=== PATIENT | female | born 1945 | race Caucasian/White ===

== ENCOUNTER → 2020-06-15 15:31 | Outpatient (CLI) | payer MEDICARE, OTHER, SELFPAY ==
--- NOTE | 2020-06-15 15:41 | DI.RAD.S_ITS ---
PROCEDURE: XR SHOULDER RT MIN 2V INDICATIONS: RT SHOULDER PAIN POST FALL TECHNIQUE: 3 views of the shoulder were acquired. COMPARISON: None. FINDINGS: Bones: Lucency in the distal clavicle concerning for nondisplaced fracture. No suspicious bony lesions. Visualized ribs appear intact. Moderate acromioclavicular joint osteoarthritis. Soft tissues: No suspicious soft tissue calcifications. Right axillary surgical clips. IMPRESSION: Possible nondisplaced distal right clavicle fracture Dictated by: Nicci Chan MD, PhD on 06/15/2020 at 16:48 Approved by: Nicci Chan MD, PhD on 06/15/2020 at 16:49
== END ==
PROVIDERS: PCP Family Medicine; Referring Provider Family Medicine; Visit Provider Family Medicine
DX: S49.91XA Unspecified injury of right shoulder and upper arm, initial encounter (principal); W19.XXXA Unspecified fall, initial encounter
CPT/HCPCS: 73030

== ENCOUNTER → 2020-10-10 12:07 | Outpatient (CLI) | payer MEDICARE, OTHER, SELFPAY ==
[2020-10-10 20:10] LABS: COVID19 - ORCAS (NP or Nasal) Negative (Negative)
== END ==
PROVIDERS: PCP Family Medicine; Visit Provider Family Medicine
DX: Z20.822 Contact with and (suspected) exposure to COVID-19 (principal)
CPT/HCPCS: U0003

== ENCOUNTER → 2021-02-23 10:15 | Outpatient (CLI) | payer MEDICARE, OTHER, SELFPAY ==
[2021-02-23 20:51] LABS: COVID19 - ORCAS (NP or Nasal) Negative (Negative)
== END ==
PROVIDERS: PCP Family Medicine; Visit Provider Family Medicine
DX: Z20.822 Contact with and (suspected) exposure to COVID-19 (principal)
CPT/HCPCS: C9803; U0003

== ENCOUNTER → 2021-09-05 13:14 | Outpatient (CLI) | payer MEDICARE, OTHER, SELFPAY ==
[2021-09-05 18:34] LABS: Add Manual Diff / Slide Review NO; Basophils Absolute Auto 0 /uL (0-100); Basophils Percent Auto 0.7 % (0-2); Eosinophils Absolute Auto 200 /uL (0-450); Eosinophils Percent Auto 3.7 % (2-4); Hematocrit 38.9 % (36-46); Lymphocytes Absolute Auto 1600 /uL (1100-4500); Lymphocytes Percent Auto 26.4 % (25-40); Mean Corpuscular HGB Conc 33.3 % (30-36); Mean Corpuscular Hemoglobin 33.1 PG (26-34); Mean Corpuscular Volume 99.4 fL (80-100); Monocytes Absolute Auto 500 /uL (0-900); Monocytes Percent Auto 8.5 % (3-14); Neutrophils Absolute Auto 3600 /uL (1500-7000); Neutrophils Percent Auto 60.7 % (50-75); Platelet Count 230 X10^3/uL (150-400); Red Blood Cell Count 3.91 X10^6/uL (4.0-5.2); Red Cell Distribution Width 13.4 % (11.6-14.8); White Blood Cell Count 5.9 X10^3/uL (4.5-11.0)
[2021-09-05 18:44] LABS: Alanine Aminotransferase 115 IU/L (<35); Albumin 4.2 g/dL (3.5-5.0); Albumin Globulin Ratio 1.8 (1.0-2.8); Alkaline Phosphatase 70 U/L (38-126); Aspartate Aminotransferase 91 IU/L (14-36); BUN Creatinine Ratio 24.7 (6-22); Bilirubin Total 0.5 mg/dL (0.2-1.3); Blood Urea Nitrogen 18 mg/dL (7-17); Calcium 8.6 mg/dL (8.4-10.2); Carbon Dioxide 28 mmol/L (22-32); Chloride 102 mmol/L (98-107); Cholesterol 208 mg/dL (140-199); Estimated Glomerular Filt Rate > 60.0 mL/min (>60); Globulin 2.4 g/dL (1.7-4.1); Glucose 104 mg/dL (80-110); HDL Cholesterol 87 mg/dL (40-60); HEMOLYSIS 17 (0-50); LDL Cholesterol Calculated 105 mg/dL (<100); Potassium 4.3 mmol/L (3.4-5.1); Sodium 138 mmol/L (137-145); Total Protein 6.6 g/dL (6.3-8.2); Triglycerides 81 mg/dL (35-150)
[2021-09-05 19:08] LABS: TSH w/ Reflex to FT4 0.85 uIU/mL (0.47-4.68)
== END ==
PROVIDERS: PCP Family Medicine; Referring Provider Family Medicine; Visit Provider Family Medicine
DX: G31.84 Mild cognitive impairment of uncertain or unknown etiology (principal); I48.91 Unspecified atrial fibrillation; J45.909 Unspecified asthma, uncomplicated; M20.41 Other hammer toe(s) (acquired), right foot; M20.42 Other hammer toe(s) (acquired), left foot; C50.919 Malignant neoplasm of unspecified site of unspecified female breast
CPT/HCPCS: 80053; 80061; 84443; 85025

== ENCOUNTER → 2021-09-13 08:16 | Outpatient (CLI) | payer MEDICARE, OTHER, SELFPAY ==
[2021-09-13 19:42] LABS: Alanine Aminotransferase 111 IU/L (<35); Albumin 4.2 g/dL (3.5-5.0); Albumin Globulin Ratio 1.7 (1.0-2.8); Alkaline Phosphatase 71 U/L (38-126); Aspartate Aminotransferase 61 IU/L (14-36); BUN Creatinine Ratio 22.8 (6-22); Bilirubin Total 0.4 mg/dL (0.2-1.3); Blood Urea Nitrogen 18 mg/dL (7-17); Calcium 8.8 mg/dL (8.4-10.2); Carbon Dioxide 29 mmol/L (22-32); Chloride 106 mmol/L (98-107); Estimated Glomerular Filt Rate > 60 mL/min (>60); Globulin 2.5 g/dL (1.7-4.1); Glucose 106 mg/dL (80-110); HEMOLYSIS 37 (0-50); Potassium 4.8 mmol/L (3.4-5.1); Sodium 142 mmol/L (137-145); Total Protein 6.7 g/dL (6.3-8.2)
== END ==
PROVIDERS: PCP Family Medicine; Visit Provider Family Medicine
DX: R89.9 Unspecified abnormal finding in specimens from other organs, systems and tissues (principal)
CPT/HCPCS: 80053

== ENCOUNTER → 2021-12-04 15:28 | Outpatient (CLI) | payer MEDICARE, OTHER, SELFPAY ==
--- NOTE | 2021-12-04 | DI.ECHO.S_ITS ---
[facility]---------+ [facility] +---------+ : : [address] : : : : [id number] : : : : Phone: [phone] Echocardiogram Report + + :Name: TONG MCCONNELL Study Date: 12/04/2021 Height: 64 in : :[facility] ReadingLocation: Weight: 140 lb : : Gender: Female BSA: 1.7 m2 : :: 1945 Age: 76 yrs BP: 120/58 mmHg: :Reason For Study: DYSPNEA : :Ordering Physician: MICHELLE, : :OLEGARIO Performed By: Marisa Coffman : :Referring: OLEGARIO JO : + + Interpretation Summary 1) Normal left ventricular thickness and size with low normal systolic function (EF 50-55%). 2) Normal right ventricular size and function. 3) Moderately enlarged left atrium. 4) There is moderate tricuspid regurgitation. 5) There is mild aortic regurgitation. 6) The right ventricular systolic pressure is estimated to be at least 39 mmHg based on an estimated right atrial pressure of 8 mm Hg. 7) No prior Echo available for comparison. Procedure: A two-dimensional transthoracic echocardiogram with color flow and Doppler was performed. The study quality was technically adequate. There is no prior echocardiogram noted for this patient. The heart rate ranged between 75-100 bpm during the study. Left Ventricle: The left ventricle is normal in size and wall thickness. The ejection fraction is estimated to be 50-55%. Left ventricular systolic function is low normal. There are no focal wall motion abnormalities. Right Ventricle: The right ventricle is normal in size and function. Atria: The left atrium is moderately dilated. The right atrium is borderline dilated. There is no Doppler evidence for an interatrial shunt. Mitral Valve: The mitral valve leaflets appear mildly thickened, but open well. There is mild to moderate mitral regurgitation. Aortic Valve: The aortic valve is trileaflet. The aortic valve opens well. The aortic valve is slightly calcified. There is no aortic valve stenosis. There is mild aortic regurgitation. Tricuspid Valve: The tricuspid valve leaflets are thin and pliable. There is moderate tricuspid regurgitation. The right ventricular systolic pressure is estimated to be at least 39 mmHg based on an estimated right atrial pressure of 8 mm Hg. Pulmonic Valve: The pulmonic valve is not well seen, but is grossly normal. There is trace pulmonic regurgitation. Great Vessels: The aortic root is normal size. The dimensions of the ascending aorta are normal. The IVC is dilated (diameter is greater than 2.1 cm) yet it collapses greater than 50% with a sniff. This suggests a right atrial pressure of 8 mm Hg. Pericardium/ Pleura There is no pericardial effusion. There is no pleural effusion. MMode/2D Measurements & Calculations LVIDd: 4.1 cm LVOT diam: 2.0 cm LVIDs: 2.8 cm Ao root diam: 3.3 cm FS: 33.1 % asc Aorta Diam: 3.5 cm EPSS: 0.62 cm Ao Arch Diam (Prox Trans): 2.8 cm IVSd: 0.97 cm LVPWd: 0.84 cm LV atkinson. diameter/BSA (cm/m^2): 2.5 LV sys. diameter/BSA (cm/m^2): 1.6 LA A2 area: 21.7 cm2 RA long axis: 5.4 cm LA A4 area: 23.0 cm2 RA area: 18.9 cm2 LA length (vol): 5.6 cm RA vol: 55.8 ml LA vol: 76.4 ml RA : 33.2 ml/m2 LA vol index: 45.5 ml/m2 IVC diam: 2.1 cm RVD1 (basal): 3.1 cm RVD2 (mid): 2.3 cm TAPSE: 1.8 cm Doppler Measurements & Calculations Ao V2 max: 137.8 cm/sec LVOT Max Ricardo: 80.3 cm/sec Ao V2 mean: 96.0 cm/sec LV V1 max P.6 mmHg Ao max P.6 mmHg LV V1 VTI: 14.5 cm Ao mean P.1 mmHg SHERRY(I,D): 1.9 cm2 Ao V2 VTI: 24.6 cm SHERRY(V,D): 1.8 cm2 sev ratio: 0.59 SHERRY indexed to BSA (cm^2/m^2): 1.1 AI P1/2t: 568.1 msec AI dec slope: 191.4 cm/sec2 MV E max ricardo: 61.4 cm/sec TR max ricardo: 279.3 cm/sec MV A max ricardo: 1.6 cm/sec TR max P.2 mmHg MV E/A: 39.3 PA V2 max: 82.8 cm/sec Med Peak E' Ricardo: 13.1 cm/sec PA V2 mean: 59.2 cm/sec E/E' med: 4.7 PA mean P.5 mmHg Lat Peak E' Ricardo: 15.0 cm/sec PA pr(Accel): 43.0 mmHg E/E' lat: 4.1 E/e' average: 4.4 MV dec time: 0.23 sec MR ERO: 0.08 cm2 MR PISA: 0.87 cm2 SV(LVOT): 45.5 ml MR flow rate: 37.4 cm3/sec MR PISA radius: 0.37 cm Reading Physician:11:07 AM
== END ==
PROVIDERS: PCP Family Medicine; Referring Provider Internal Medicine Cardiovascular Disease; Visit Provider Internal Medicine Cardiovascular Disease
DX: R06.00 Dyspnea, unspecified (principal); I51.7 Cardiomegaly; I07.1 Rheumatic tricuspid insufficiency; I35.1 Nonrheumatic aortic (valve) insufficiency
CPT/HCPCS: 93306

== ENCOUNTER → 2022-02-05 09:36 | Outpatient (CLI) | payer MEDICARE, OTHER, SELFPAY ==
[2022-02-05 20:06] LABS: Alanine Aminotransferase 36 IU/L (<35); Albumin 4.2 g/dL (3.5-5.0); Albumin Globulin Ratio 1.8 (1.0-2.8); Alkaline Phosphatase 61 U/L (38-126); Aspartate Aminotransferase 33 IU/L (14-36); Bilirubin Total 0.7 mg/dL (0.2-1.3); Blood Urea Nitrogen 19 mg/dL (7-17); Calcium 9.2 mg/dL (8.4-10.2); Carbon Dioxide 28 mmol/L (22-32); Chloride 103 mmol/L (98-107); Estimated Glomerular Filt Rate > 60 mL/min (>60); Globulin 2.4 g/dL (1.7-4.1); Glucose 108 mg/dL (80-110); HEMOLYSIS < 15 (0-50); Potassium 4.3 mmol/L (3.4-5.1); Sodium 138 mmol/L (137-145); Total Protein 6.6 g/dL (6.3-8.2)
[2022-02-05 21:12] LABS: TSH w/ Reflex to FT4 1.19 uIU/mL (0.47-4.68)
== END ==
PROVIDERS: PCP Family Medicine; Visit Provider Family Medicine
DX: G31.84 Mild cognitive impairment of uncertain or unknown etiology (principal); F32.0 Major depressive disorder, single episode, mild; I48.91 Unspecified atrial fibrillation
CPT/HCPCS: 80053; 84443

== ENCOUNTER 2023-02-05 09:20 | Emergency (ER) | payer MEDICARE, OTHER, SELFPAY ==
[2023-02-05 09:26] VITALS: BP 122/75; PULSE 78; RESP 18; TEMP 36.6; O2SAT 96; BMI 24.0
--- NOTE | 2023-02-05 09:38 | ED.EYEPROB ---
HPI - Eye Problem General Chief complaint: Eye Problems Stated complaint: Left eye infection Time Seen by Provider: 02/05/23 09:38 Source: patient Mode of arrival: Ambulatory Limitations: no limitations History of Present Illness HPI Narrative: Patient has a small area of erythema on the left upper lid for about 3 days. There is a small amount of purulent drainage from the site. There is no increased erythema. Occasionally she feels like there is a film over the left eye. She is no persistent discharge. She is no sinus congestion, rhinorrhea, chronic sinus problems. She has no sore throat. She denies fever chills. There is no change in her vision. She is had no eye trauma. Related Data Home Medications Medication Instructions Recorded Confirmed apixaban 5 mg tablet (Eliquis) 5 mg PO BID 12/06/22 01/07/23 memantine 5 mg tablet 5 mg PO BID 12/06/22 01/07/23 Previous Rx's Medication Instructions Recorded loratadine 10 mg tablet 10 mg PO DAILY #90 tabs 08/28/21 albuterol sulfate 90 mcg/actuation See Rx Instructions .Route 07/03/22 aerosol inhaler .COMPLEX #8.5 grams metoprolol succinate 25 mg See Rx Instructions .Route 01/07/23 tablet,extended release 24 hr .COMPLEX #90 tabs sertraline 50 mg tablet 50 mg PO DAILY #90 tabs 01/09/23 gentamicin 0.3 % eye drops 1 drp EYE-LEFT .q4h while awake #5 02/05/23 mL Allergies Allergy/AdvReac Type Severity Reaction Status Date / Time No Known Drug Allergies Allergy Verified 12/05/22 11:04 Review of Systems Review of Systems ROS Unobtainable: All systems reviewed & are unremarkable except as noted in HPI and below Patient History Medical History Atrial fibrillation with rapid ventricular response Breast cancer (~2015) Chicken pox (~1950) Encounter to establish care Headache Hearing loss Heavy menstrual period Hypertension Medicare annual wellness visit, subsequent Migraines Mild cognitive impairment with memory loss Seasonal allergic reaction Thyroid nodule (~1964) Surgical History Anesthesia H/O lumpectomy (~2015) H/O thyroidectomy Status post breast lumpectomy (~1989) Status post breast lumpectomy (~1999) Status post breast lumpectomy (~2014) Status post hysterectomy Family History Father Heart disease Grandfather Appendicitis Grandfather Heart disease Sister Age: 67 Breast cancer Mother Suicide Brother Cancer Social History Smoking Status: Former smoker additional social history: traveling to [place] with daughter for 2-3 weeks Daughter is a [place] Senator [facility] 12/2022 Smoking Status: Former smoker alcohol intake frequency: 0-2 drinks per day Substance Use Type: does not use Exam Initial Vital Signs Initial Vital Signs: Vital Signs Temperature 97.9 F 02/05/23 09:26 Pulse Rate 78 02/05/23 09:26 Respiratory Rate 18 02/05/23 09:26 Blood Pressure 122/75 02/05/23 09:26 Pulse Oximetry 96 02/05/23 09:26 Oxygen Delivery Method Room Air 02/05/23 09:26 Const General: cooperative, healthy appearing, comfortable, well developed and well groomed [facility] Head: normal to inspection, normocephalic and atraumatic Eyes Visual Madrigal: normal visual madrigal by confrontation Periorbital: periorbital findings normal Eyelids: eyelid abnormality left upper eyelid erythema (Small stye to the lateral aspect of the lid.) Conjunctivae: conjunctivae normal Sclera: sclerae normal Pupils: PERRL and pupil size EOM: EOM intact bilaterally Neck Neck: normal visual inspection, full ROM and No lymphadenopathy Course Vital Signs Vital signs: Vital Signs - 8 hr 02/05/23 09:26 Temperature 97.9 F Pulse Rate 78 Respiratory Rate 18 Blood Pressure 122/75 Pulse Oximetry 96 Oxygen Delivery Method Room Air Discharge Plan Departure Patient Disposition: Home Clinical Impression: Hordeolum externum (stye) Qualifiers: Laterality: left Eyelid: upper Qualified Code(s): H00.014 - Hordeolum externum left upper eyelid Instructions: Hordeolum Activity Restrictions/Additional Instructions: Gentamicin 1 drop into the left eye every 4 hours while awake for 1 week. Apply warm compresses to the left eye frequently for the next several days. You may need 2-3 weeks for the stye to dry up. At this time persist, see an forestry extension specialist. Return here as needed. Prescriptions: New gentamicin 0.3 % drops 1 drp EYE-LEFT .q4h while awake Qty: 5 0RF Rx Instructions: for 7 days No Action albuterol sulfate 90 mcg/actuation HFA aerosol inhaler See Rx Instructions .ROUTE .COMPLEX Qty: 8.5 2RF Dose Instruction: INHALE TWO PUFFS BY MOUTH EVERY 4 HOURS NEEDED FOR SHORTNESS OF BREATH WHEEZING OR BRONCHOSPASM Rx Instructions: INHALE TWO PUFFS BY MOUTH EVERY 4 HOURS NEEDED FOR SHORTNESS OF BREATH WHEEZING OR BRONCHOSPASM. Please provide patient with two so she can have one in her car sertraline 50 mg tablet 50 mg PO DAILY Qty: 90 3RF loratadine 10 mg tablet 10 mg PO DAILY Qty: 90 1RF Eliquis 5 mg tablet 5 mg PO BID memantine 5 mg tablet 5 mg PO BID metoprolol succinate 25 mg tablet extended release 24 hr See Rx Instructions .ROUTE .COMPLEX Qty: 90 1RF Dose Instruction: TAKE ONE TABLET BY MOUTH EVERY DAY Rx Instructions: TAKE ONE TABLET BY MOUTH EVERY DAY Referrals: Arleen Rogers MD [Primary Care Provider] - Stand Alone Forms: Patient Portal/API
== END 2023-02-05 09:59 | disposition home or self-care (01) ==
PROVIDERS: Emergency Provider Emergency Medicine; PCP Family Medicine
DX: H00.014 Hordeolum externum left upper eyelid (principal)
CPT/HCPCS: 99281

== ENCOUNTER → 2023-03-25 13:08 | Outpatient (CLI) | payer MEDICARE, OTHER, SELFPAY ==
[2023-03-25 19:15] LABS: Add Manual Diff / Slide Review NO; Basophils Absolute Auto 0 /uL (0-100); Basophils Percent Auto 0.7 % (0-2); Eosinophils Absolute Auto 300 /uL (0-450); Eosinophils Percent Auto 3.9 % (2-4); Hematocrit 40.1 % (36-46); Hemoglobin 13.4 g/dL (12.0-16.0); Lymphocytes Absolute Auto 1000 /uL (1100-4500); Lymphocytes Percent Auto 14.4 % (25-40); Mean Corpuscular HGB Conc 33.5 % (30-36); Mean Corpuscular Hemoglobin 34.2 PG (26-34); Mean Corpuscular Volume 102.3 fL (80-100); Monocytes Absolute Auto 700 /uL (0-900); Monocytes Percent Auto 10.4 % (3-14); Neutrophils Absolute Auto 4800 /uL (1500-7000); Neutrophils Percent Auto 70.6 % (50-75); Platelet Count 216 X10^3/uL (150-400); Red Blood Cell Count 3.92 X10^6/uL (4.0-5.2); Red Cell Distribution Width 13.5 % (11.6-14.8); White Blood Cell Count 6.8 X10^3/uL (4.5-11.0)
[2023-03-25 19:26] LABS: Alanine Aminotransferase 29 IU/L (<35); Albumin Globulin Ratio 1.7 (1.0-2.8); Alkaline Phosphatase 70 U/L (38-126); Aspartate Aminotransferase 37 IU/L (14-36); BUN Creatinine Ratio 17.1 (6-22); Bilirubin Total 0.5 mg/dL (0.2-1.3); Blood Urea Nitrogen 14 mg/dL (7-17); Calcium 9.3 mg/dL (8.4-10.2); Carbon Dioxide 28 mmol/L (22-32); Chloride 102 mmol/L (98-107); Estimated Glomerular Filt Rate > 60 mL/min (>60); Globulin 2.4 g/dL (1.7-4.1); Glucose 93 mg/dL (80-110); HEMOLYSIS < 15 (0-50); Potassium 4.7 mmol/L (3.4-5.1); Sodium 135 mmol/L (137-145); Total Protein 6.4 g/dL (6.3-8.2)
[2023-03-25 19:37] LABS: LDL Cholesterol Direct 124 mg/dL (<100)
[2023-03-27 08:54] LABS: HBsAg Screen Negative (Negative); Hepatitis A Antibody IgM Negative (Negative); Hepatitis B Core Antibody IgM Negative (Negative); Hepatitis C Antibody Non Reactive (Non Reactive)
[2023-03-28 09:57] LABS: Hepatitis B Surf Ab Qualitativ Non Reactive (.)
== END ==
PROVIDERS: PCP Family Medicine; Visit Provider Family Medicine
DX: I10 Essential (primary) hypertension (principal); R74.01 Elevation of levels of liver transaminase levels; I48.91 Unspecified atrial fibrillation
CPT/HCPCS: 80053; 80074; 83721; 85025; 86706

== ENCOUNTER → 2023-07-28 11:03 | Outpatient (CLI) | payer MEDICARE, OTHER, SELFPAY ==
[2023-07-28 20:39] LABS: HEMOLYSIS < 15 (0-50); Iron 173 ug/dL (37-170)
[2023-07-28 20:47] LABS: Alanine Aminotransferase 35 IU/L (<35); Albumin 4.3 g/dL (3.5-5.0); Albumin Globulin Ratio 1.6 (1.0-2.8); Alkaline Phosphatase 71 U/L (38-126); Aspartate Aminotransferase 41 IU/L (14-36); BUN Creatinine Ratio 27.1 (6-22); Bilirubin Total 1.1 mg/dL (0.2-1.3); Blood Urea Nitrogen 19 mg/dL (7-17); Calcium 9.4 mg/dL (8.4-10.2); Carbon Dioxide 26 mmol/L (22-32); Chloride 105 mmol/L (98-107); Estimated Glomerular Filt Rate > 60 mL/min (>60); Globulin 2.7 g/dL (1.7-4.1); Glucose 90 mg/dL (80-110); HEMOLYSIS 24 (0-50); Potassium 4.2 mmol/L (3.4-5.1); Sodium 138 mmol/L (137-145)
[2023-07-28 20:50] LABS: Add Manual Diff / Slide Review NO; Basophils Absolute Auto 0 /uL (0-100); Basophils Percent Auto 0.9 % (0-2); Eosinophils Absolute Auto 100 /uL (0-450); Eosinophils Percent Auto 3.4 % (2-4); Hematocrit 39.3 % (36-46); Hemoglobin 13.3 g/dL (12.0-16.0); Lymphocytes Absolute Auto 1000 /uL (1100-4500); Lymphocytes Percent Auto 23.2 % (25-40); Mean Corpuscular HGB Conc 33.9 % (30-36); Mean Corpuscular Hemoglobin 34.3 PG (26-34); Mean Corpuscular Volume 101.1 fL (80-100); Monocytes Absolute Auto 300 /uL (0-900); Monocytes Percent Auto 7.9 % (3-14); Neutrophils Absolute Auto 2700 /uL (1500-7000); Neutrophils Percent Auto 64.6 % (50-75); Platelet Count 182 X10^3/uL (150-400); Red Blood Cell Count 3.89 X10^6/uL (4.0-5.2); Red Cell Distribution Width 13.1 % (11.6-14.8); White Blood Cell Count 4.2 X10^3/uL (4.5-11.0)
[2023-07-28 20:51] LABS: Percent Iron Saturation 55 % (15-50); Total Iron Binding Capacity 316 ug/dL (265-497); Transferrin 258 mg/dL (206-381)
[2023-07-28 21:16] LABS: TSH w/ Reflex to FT4 1.01 uIU/mL (0.47-4.68)
[2023-07-28 21:26] LABS: Ferritin 49 ng/mL (11-264)
[2023-07-28 21:57] LABS: Folate > 20.0 ng/mL (2.76-20.0); Vitamin B12 Reflex MMA if <400 309 pg/mL (239-931)
[2023-08-01 09:19] LABS: Methylmalonic Acid,Serum 293 nmol/L (0-378)
== END ==
PROVIDERS: PCP Family Medicine; Visit Provider Family Medicine
DX: R74.01 Elevation of levels of liver transaminase levels (principal); G30.9 Alzheimer's disease, unspecified; E53.8 Deficiency of other specified B group vitamins; D75.89 Other specified diseases of blood and blood-forming organs; F02.80 Dementia in other diseases classified elsewhere, unspecified severity, without behavioral disturbance, psychotic disturbance, mood disturbance, and anxiety; F32.0 Major depressive disorder, single episode, mild
CPT/HCPCS: 80053; 82607; 82728; 82746; 83540; 83550; 83921; 84443; 85025

== ENCOUNTER → 2024-05-18 13:58 | Outpatient (CLI) | payer MEDICARE, OTHER, SELFPAY ==
[2024-05-18 19:32] LABS: Add Manual Diff / Slide Review NO; Basophils Absolute Auto 0 /uL (0-100); Basophils Percent Auto 0.4 % (0-2); Eosinophils Absolute Auto 200 /uL (0-450); Eosinophils Percent Auto 1.8 % (2-4); Hematocrit 42.7 % (36-46); Hemoglobin 14.2 g/dL (12.0-16.0); Lymphocytes Absolute Auto 1100 /uL (1100-4500); Lymphocytes Percent Auto 11.4 % (25-40); Mean Corpuscular HGB Conc 33.2 % (30-36); Mean Corpuscular Hemoglobin 34.4 PG (26-34); Mean Corpuscular Volume 103.7 fL (80-100); Monocytes Absolute Auto 1100 /uL (0-900); Monocytes Percent Auto 10.6 % (3-14); Neutrophils Absolute Auto 7600 /uL (1500-7000); Neutrophils Percent Auto 75.8 % (50-75); Platelet Count 238 X10^3/uL (150-400); Red Blood Cell Count 4.12 X10^6/uL (4.0-5.2); Red Cell Distribution Width 13.2 % (11.6-14.8); White Blood Cell Count 10.1 X10^3/uL (4.5-11.0)
[2024-05-18 20:01] LABS: Free T3, Triiodothyronine Free 3.83 pg/mL (2.77-5.27); Free T4, Direct Thyroxine 0.88 ng/dL (0.78-2.19)
[2024-05-18 20:07] LABS: Cancer Antigen 125 48.8 U/mL (0-35)
[2024-05-18 20:15] LABS: Thyroid Stimulating Hormone 0.168 uIU/mL (0.47-4.68)
[2024-05-18 20:34] LABS: Vitamin B12 484 pg/mL (239-931)
== END ==
PROVIDERS: PCP Family Medicine; Visit Provider Family Medicine
DX: R63.4 Abnormal weight loss (principal); C56.9 Malignant neoplasm of unspecified ovary; R74.01 Elevation of levels of liver transaminase levels; D75.89 Other specified diseases of blood and blood-forming organs; D49.59 Neoplasm of unspecified behavior of other genitourinary organ; E53.8 Deficiency of other specified B group vitamins; E07.9 Disorder of thyroid, unspecified
CPT/HCPCS: 82607; 84439; 84443; 84481; 85025; 86304

== ENCOUNTER → 2024-05-28 13:48 | Outpatient (CLI) | payer MEDICARE, OTHER, SELFPAY ==
--- NOTE | 2024-05-28 13:52 | DI.US.S_ITS ---
PROCEDURE: US THYROID INDICATIONS: 2.9 cm thyroid nodule on left TECHNIQUE: Real-time scanning was performed of the thyroid gland, with image documentation. COMPARISON: None. FINDINGS: Thyroid: Right lobe measures 4.7 x 2.3 x 2.4 cm. Left lobe measures 3.9 x 1.3 x 1.2 cm. Isthmus is 2.8 mm cm thick. Echotexture is heterogeneous.. Nodule number: 1 Location: Sagittal upper pole centrally. It measures 0.99 x 0.62 x 0.8 cm in size there is some peripheral vascularity. The nodule appears solid and is poorly marginated. There is no evidence of calcification.. Echogenicity: Is heterogeneous isoechoic with minimal hypoechoic areas. No cystic components. Shape: wider than tall Margins: Partially defined Echogenic foci: None Total points: 4 ACR TI-RADS category: TI-RADS 4 moderately suspicious. Does not reach criteria for FNA. Twelve month interval follow-up. Nodule number: 2 Location: Right thyroid lobe upper central in location Size: 2.9 5 x 1.84 by 2.39 cm in size Composition: Heterogeneous a mildly hypoechoic or some minimal cystic components. Echogenicity: Isoechoic with some minor hypoechogenic portions. Shape: Oval, pastor shaped Margins: Fairly well-defined over 75% of the margin Echogenic foci: None Total points: 3 ACR TI-RADS category: TI-RADS 3 mildly suspicious FNA at 2.5 cm or larger. Follow-up is recommended and biopsy if not clinically contraindicated, it would be recommended. Nodule number: 3 Location right thyroid lobe mid inferior in location anterior in position Size: 1.71 x 1.02 by 1.34 cm Composition: Solid Echogenicity: Mixed hypo and hyperechoic. Shape: Oval Margins: For the well-defined over 70% of the margin. Echogenic foci: Heterogeneous Total points: 5 ACR TI-RADS category: TI-RADS 4 moderately suspicious . FNA biopsy is recommended at 1.5 cm. This is recommended if not clinically contraindicated. Follow-up in 12 months. Nodule number: 4 Location: Right lobe thyroid inferior lateral to nodule 3. Size: 1.1 x 0.8 x 0.95 cm Composition: Solid with some minimal cystic component Echogenicity: Hypoechoic Shape: Round Margins: Fairly well-marginated involving 75% of the margin. Echogenic foci: None Total points: TI-RADS 3 mildly suspicious. Does not reach the criteria for FNA biopsy. Follow up in 1 year. IMPRESSION: Right lobe of thyroid 1 nodule, TI_RADS 4. Follow-up in 1 year. Left lobe of the thyroid shows 3 nodules. The nodule labeled 2. Reaches and reach the size criteria for biopsy of a TI-RADS 3 lesion. Nodule 3 is moderately suspicious and reaches the criteria for biopsy. Nodule 4 does not reach the criteria for FNA biopsy follow-up in 1 year. Biopsy should be considered for sufficient nodules if not clinically contraindicated. ACR TI-RADS definitions and recommendations: TI-RADS 1 (benign): 0 points. FNA not needed. TI-RADS 2 (not suspicious): 2 points. FNA not needed. TI-RADS 3: 3 points. * FNA if 2.5 cm or larger, follow up if 1.5 cm or larger (at 1, 3, and 5 years). TI-RADS 4: 4-6 points. * FNA if 1.5 cm or larger, follow up if 1 cm or larger (at 1, 2, 3, and 5 years). TI-RADS 5: 7 points or more. * FNA if 1 cm or larger, follow up if 0.5 cm or larger (every year for 5 years). Dictated by: Sb Palm M.D. on 05/28/2024 at 15:21 Approved by: Sb Palm M.D. on 05/28/2024 at 16:26
--- NOTE | 2024-05-28 13:56 | DI.US.S_ITS ---
PROCEDURE: US PELVIC COMPLETE INDICATIONS: LEFT PELVIC MASS ON OUTSIDE CT TECHNIQUE: Real-time scanning was performed of the pelvic organs, with image documentation. Additional endovaginal scanning was necessary due to incomplete visualization of the adnexal and endometrial structures by transabdominal scanning. COMPARISON: None. FINDINGS: Uterus: Uterus is surgically absent. No abnormality is seen in vaginal cuff region. Ovaries: Bilateral ovaries are not visualized. There is no right adnexal mass. 4.0 x 4.2 x 5.1 cm hypoechoic and solid appearing structure is noted in left adnexa and show no internal vascularity. Other: No pathologic free abdominal or pelvic fluid. IMPRESSION: 1. 4 x 4.2 x 5.1 cm hypoechoic and solid appearing lobulated structure within left adnexa and show no internal vascularity. This is suggestive of neoplastic process of indeterminate origin. Consider CT or MRI of pelvis with contrast for further evaluation. 2. Prior hysterectomy. No abnormality is seen in vaginal cuff region. No abnormality is noted in right adnexa. No pelvic free fluid. We strive to produce accurate, complete, and clear reports of imaging services. To assist us in improving patient care, this report was composed using standard report templates and voice recognition software. Therefore, it may contain abnormal punctuation, insertions and/or omissions. Occasional wrong-word or sound-alike substitutions may occur. Though we review the report and make efforts to correct it, we do recommend that the report be read carefully in proper context to recognize any text inaccuracies. Dictated by: Que Can M.D. on 05/28/2024 at 17:23 Approved by: Que Can M.D. on 05/28/2024 at 17:26
== END ==
PROVIDERS: PCP Family Medicine; Referring Provider Family Medicine; Visit Provider Family Medicine
DX: E04.2 Nontoxic multinodular goiter (principal); D49.59 Neoplasm of unspecified behavior of other genitourinary organ; Z90.710 Acquired absence of both cervix and uterus
CPT/HCPCS: 76536; 76856